=== PATIENT | female | born 1950 | race Caucasian/White ===

== ENCOUNTER 2018-01-22 12:35 | Outpatient (CLI) | payer MEDICARE, BC | END 2018-01-22 23:59 | disposition home or self-care (01) | LOC: RAD 12:35 | PROVIDERS: ATTEND Family Medicine | DX: M75.31 Calcific tendinitis of right shoulder (principal) | CPT/HCPCS: 73221 ==

== ENCOUNTER 2020-09-14 09:10 | Emergency (ER) | payer MEDICARE, BC ==
[~2020-09-14] VITALS: Ht 160 cm; Wt 76.2 kg
[2020-09-14 09:39] LABS: BASOPHILS % (AUTO) 0.4 % (0-1); EOSINOPHILS # (AUTO) 0.2 X10'3 (0-0.9); EOSINOPHILS % (AUTO) 2.7 % (0-6); HEMATOCRIT 39.2 % (35.0-45.0); HEMOGLOBIN 13.3 g/dl (12.0-16.0); LYMPHOCYTES # (AUTO) 1.4 X10'3 (1.1-4.8); LYMPHOCYTES % (AUTO) 24.4 % (21-51); MEAN CORPUSCULAR HEMOGLOBIN 29.3 PG (27.0-31.0); MEAN CORPUSCULAR HGB CONC 33.9 g/dL (33.0-36.5); MEAN CORPUSCULAR VOLUME 86.5 FL (78-98); MONOCYTES # (AUTO) 0.5 X10'3 (0-0.9); MONOCYTES % (AUTO) 8.8 % (2-12); NEUTROPHILS # (AUTO) 3.7 X10'3 (1.8-7.7); NEUTROPHILS % (AUTO) 63.7 % (42-75); PLATELET COUNT 218 X10'3 (140-440); RED BLOOD COUNT 4.53 X10'6 (4.20-5.60); RED CELL DISTRIBUTION WIDTH 13.4 % (11.5-14.5); WHITE BLOOD COUNT 5.8 X10'3 (4.5-11.0)
[2020-09-14 09:52] LABS: ALANINE AMINOTRANSFERASE 28 U/L (12-78); ALBUMIN 3.8 G/DL (3.4-5.0); ALBUMIN/GLOBULIN RATIO 1.2 (1.1-1.5); ALKALINE PHOSPHATASE 73 IU/L (46-116); ANION GAP 8 (8-16); ASPARTATE AMINO TRANSFERASE 21 U/L (10-37); BILIRUBIN,TOTAL 0.4 MG/DL (0.1-1.0); BLOOD UREA NITROGEN 22 MG/DL (7-18); BUN/CREATININE RATIO 19.8 (6.6-38.0); CHLORIDE 107 MMOL/L (99-107); CREATININE 1.11 MG/DL (0.40-0.90); GLUCOSE 107 MG/DL (70-104); POTASSIUM 3.9 MMOL/L (3.5-5.1); SODIUM 142 MMOL/L (135-145); TOTAL CARBON DIOXIDE 27.1 MMOL/L (24-32); TOTAL PROTEIN 6.9 G/DL (6.4-8.2); eGFR 49 ML/MIN
[2020-09-14 10:20] VITALS: BP 105/57
== END 2020-09-14 10:20 | disposition home or self-care (01) ==
LOC: ER 09:11
DX: M79.604 Pain in right leg (principal); M54.10 Radiculopathy, site unspecified; I10 Essential (primary) hypertension
CPT/HCPCS: 36415; 80053; 85025; 85610; 93971; 99284

== ENCOUNTER 2025-01-20 09:25 | Day surgery (SDC) | payer MEDICARE, BC ==
[2025-01-20] VITALS (9 sets, daily range): BP systolic 110–137; BP diastolic 58–69; PULSE 47–62; RESP 12–16; TEMP 97.1; O2SAT 93–98
[~2025-01-20] VITALS: Ht 162.6 cm; Wt 95.3 kg
[~2025-01-20 09:25] MED LIST: BUPR-114 PO; CYAN50007 PO; DILT240C94 PO; DOCUMENT DATE & TIME OF BETA-BLOCKER PO ONE; ERGO2000 PO; LEVO75TA7 PO; METO-411 PO; OMEP20CA16 PO; QUET-1 PO; ringers solution, lacted 1,000 ML IV SCH
[2025-01-20] MEDS ORDERED: MIDAZolam 1 MG/ML 5ML VIAL ONE (12:57)
[2025-01-20] MEDS ORDERED: fentaNYL/PF 50MCG/1 ML 2ML syringe ONE (12:59)
--- NOTE | 2025-01-21 13:50 | PATHOLOGY REPORT ---
[facility] [address] [place] [address] SURGICAL PATHOLOGY REPORT CaseNumber: [id number] Surgeon:Catalina Edmondson M.D. CLINICAL INFORMATION CLINICAL INFORMATION: Screening. DIAGNOSIS DIAGNOSIS: POLYP, ASCENDING COLON, MULTIPLE BIOPSIES - TUBULAR ADENOMA (0.8 CM) - NO HIGH-GRADE DYSPLASIA OR MALIGNANCY MICROSCOPIC DESCRIPTION MICROSCOPIC DESCRIPTION: Reviewed is a single H&E-stained slide showing serial sections and levels of multiple polypoid fragments of colonic mucosa. There are areas involved by adenomatous changes that measure up to 0.8 cm in greatest dimension. There are no features of high-grade dysplasia or malignancy. Some of the fragments show hyperplastic features as well. GROSS DESCRIPTION GROSS DESCRIPTION: Received in a container of formalin labeled with the patient's name, number, and "ascending colon polyp" is a 1.2 x 0.6 x 0.3 cm aggregate of irregularly shaped pieces of antoine tissue. The specimen is entirely submitted as A1. The time at which the specimen was removed was 1318. The time at which the specimen was placed in formalin was 1320. Electronically signed by: Everton Bullock M.D. 01/21/2025 1:13:00 PM
== END 2025-01-20 14:55 | disposition home or self-care (01) ==
LOC: GI LAB 09:25
PROVIDERS: ATTEND Internal Medicine Gastroenterology
DX: Z12.11 Encounter for screening for malignant neoplasm of colon (principal); D12.2 Benign neoplasm of ascending colon; K57.30 Diverticulosis of large intestine without perforation or abscess without bleeding; E78.5 Hyperlipidemia, unspecified; E66.812 Obesity, class 2; E03.9 Hypothyroidism, unspecified; K21.9 Gastro-esophageal reflux disease without esophagitis; E55.9 Vitamin D deficiency, unspecified; E66.09 Other obesity due to excess calories; F41.8 Other specified anxiety disorders; E73.9 Lactose intolerance, unspecified; I10 Essential (primary) hypertension; M19.011 Primary osteoarthritis, right shoulder; Z88.1 Allergy status to other antibiotic agents; Z88.0 Allergy status to penicillin; Z88.2 Allergy status to sulfonamides; Z68.35 Body mass index [BMI] 35.0-35.9, adult; Z87.898 Personal history of other specified conditions; Z79.899 Other long term (current) drug therapy
CPT/HCPCS: 45385; 88305; 99152; A4620; J2250; J3010; J7120; Z7512; 99153